=== PATIENT | female | born 1995 | race Two or more races ===

== ENCOUNTER 2021-01-24 12:59 | Emergency (ER) | payer MEDICAID, OTHER ==
[~2021-01-24] VITALS: Ht 157.5 cm; Wt 81.2 kg
[2021-01-24 13:43] VITALS: BP 114/79
== END 2021-01-24 15:20 | disposition home or self-care (01) ==
LOC: ER 12:59
DX: R10.31 Right lower quadrant pain (principal); R10.32 Left lower quadrant pain; R59.0 Localized enlarged lymph nodes; Z88.8 Allergy status to other drugs, medicaments and biological substances
CPT/HCPCS: 76856

== ENCOUNTER 2021-02-25 14:50 | Emergency (ER) | payer MEDICAID ==
[~2021-02-25] VITALS: Ht 157.5 cm; Wt 78.9 kg
[2021-02-25 20:29] LABS: Basophils # (auto) 0 10 ^3/uL (0-0.2); Basophils % (auto) 0.2 % (0.0-2.0); Eosinophils # (auto) 0.1 10 ^3/uL (0-0.8); Eosinophils % (auto) 2.6 % (0.0-7.0); Hematocrit 33.5 % (36.0-46.0); Hemoglobin 10.7 g/dL (12.2-16.2); Lymphocytes % (auto) 18.3 % (10.0-50.0); Mean Corpuscular Hemoglobin 26.5 pg (28.0-32.0); Mean Corpuscular Hgb Conc. 31.8 g/dL (32.0-36.0); Mean Corpuscular Volume 83.3 fL (80.0-100.0); Monocytes # (auto) 0.2 10 ^3/uL (0-1.3); Monocytes % (auto) 3.2 % (0.0-12.0); Neutrophils # (auto) 4.1 10 ^3/uL (1.6-8.6); Neutrophils % (auto) 75.7 % (37.0-80.0); Red Blood Cells 4.02 10^6/uL (4.0-5.20); Red Cell Distribution Width 18.6 % (11.8-14.3); White Blood Cell 5.4 10^3/uL (4.4-10.8)
[2021-02-25 20:37] LABS: Urine Bacteria FEW /hpf (None Seen); Urine Blood Negative /uL (Negative); Urine Mucus FEW (None Seen); Urine Specific Gravity 1.026 (1.001-1.035); Urine WBC 1 /hpf (0 - 5)
[2021-02-25 20:45] LABS: Albumin 2.9 g/dL (3.4-5.0); Calcium 8.8 mg/dL (8.5-10.1); Potassium 3.9 mmol/L (3.5-5.1)
[2021-02-25 20:53] LABS: BUN/Creatinine Ratio 16.2; Bilirubin, Total 0.2 mg/dL (0.2-1.0); CRP High Sensitivity 4.24 mg/dL (< 0.3); Total Protein 8.6 g/dL (6.4-8.2)
[2021-02-25 22:41] VITALS: BP 121/71
== END 2021-02-26 03:06 | disposition home or self-care (01) ==
LOC: ER 14:50
DX: O99.711 Diseases of the skin and subcutaneous tissue complicating pregnancy, first trimester (principal); R21 Rash and other nonspecific skin eruption; C85.95 Non-Hodgkin lymphoma, unspecified, lymph nodes of inguinal region and lower limb; Z3A.00 Weeks of gestation of pregnancy not specified; Z98.890 Other specified postprocedural states; Z88.6 Allergy status to analgesic agent
CPT/HCPCS: 36415; 80053; 81001; 81025; 83605; 84112; 84702; 85025; 85652; 86141; 87040; 87086

== ENCOUNTER 2024-10-17 15:03 | Emergency (ER) | payer MEDICAID ==
[~2024-10-17] VITALS: Ht 157.5 cm; Wt 90.2 kg
[2024-10-17 15:07] VITALS: BP 100/74; RESP 20; TEMP 98.1; O2SAT 99
--- NOTE | 2024-10-17 15:40 | ED.PDOC ---
GI ASSESSMENT HPI Comments 29 y/o F, with no prior medical history presents to the ED for CC of abdominal pain. Patient states, she has been experiencing epigastric abdominal pain that radiates to her back with associated right sided chest discomfort onset, x2days. Patient reports, that she was seen at [facility] and was told symptoms were d/t gastritis; patient was relayed home with medications. Patient comments, that medications have not helped alleviate symptoms. Patient denies nausea, vomiting, headache, dizziness, or diarrhea. No other symptoms or modifying factors present at this time. Chief Complaint: Abdominal Pain Time Seen by MD: 15:30 Primary Care Provider: LEONARDO Reviewed Notes: Nurses Notes, Medications, Allergies Allergies: Coded Allergies: Acetaminophen (Verified Allergy, Unknown, 04/04/23) Ibuprofen (Verified Allergy, Unknown, 01/24/21) Information Source: Patient Mode of Arrival: Ambulatory Timing: Days Duration: Since onset Prehospital treatment: None Quality: None Vomitus: None Stool: Normal Severity: Moderate Recent: None Recent Hx of: None Pain Location: Epigastric Modifying Factors: Nothing Associated sign and symptoms: Abdominal Pain Past Medical History PAST MEDICAL HISTORY: Denies Surgical History: [employer] History: Denies all [employer] Hx Family History Family History: Reviewed,noncontributory to illness Social History Smoker: Non-Smoker Alcohol: Denies ETOH Use Drugs: Denies Drug Use Lives In: Home Constitutional: denies: chills, diaphoresis, fatigue, fever, malaise, sweats, weakness, others EENTM: denies: blurred vision, double vision, ear bleeding, ear discharge, ear drainage, ear pain, ear ringing, eye pain, eye redness, hearing loss, mouth pain, mouth swelling, nasal discharge, nose bleeding, nose congestion, nose pain, photophobia, tearing, throat pain, throat swelling, voice changes, others Respiratory: reports: cough; denies: hemoptysis, orthopnea, SOB at rest, shortness of breath, SOB with excertion, stridor, wheezing, others Cardiovascular: reports: chest pain; denies: dizzy spells, diaphoresis, Dyspnea on exertion, edema, irregular heart beat, left arm pain, lightheadedness, palpitations, PND, syncope, others Gastrointestinal: reports: abdominal pain; denies: abdomen distended, blood streaked bowels, constipated, diarrhea, dysphagia, difficulty swallowing, hematemesis, melena, nausea, poor appetite, poor fluid intake, rectal bleeding, rectal pain, vomiting, others Genitourinary: denies: abnormal vagina bleeding, burning, dyspareunia, dysuria, flank pain, frequency, hematuria, incontinence, pain, , vagina discharge, urgency, others Neurological: denies: dizziness, fainting, headache, left sided numbness, left sided weakness, numbness, paresthesia, pre-existing deficit, right sided numbness, right sided weakness, seizure, speech problems, tingling, tremors, weakness, others Musculoskeletal: denies: back pain, gout, joint pain, joint swelling, muscle pain, muscle stiffness, neck pain, others Integumetry: denies: bruises, change in color, change in hair/nails, dryness, laceration, lesions, lumps, rash, wounds, others Allergic/Immunocompromised: denies: Difficulty Healing, Frequent Infections, Hives, Itching, others Hematologic/Lymphatic: denies: anemia, blood clots, easy bleeding, easy bruising, swollen glands, others Endocrine: denies: excessive hunger, excessive sweating, excessive thirst, excessive urination, flushing, intolerance to cold, intolerance to heat, unexplained weight gain, unexplained weight loss, others Psychiatric: denies: anxiety, bipolar disorder, depression, hopeless, panic disorder, schizophrenia, sleepless, suicidal, others All Other Systems: Reviewed and Negative Physical Exam General Appearance: Mild Distress HEENT: Normal ENT Inspection, Pharynx Normal, TMs Normal Neck: Full Range of Motion, Non-Tender, Normal, Normal Inspection Respiratory: Chest Non-Tender, Lungs Clear, No Accessory Muscle Use, No Respiratory Distress, Normal Breath Sounds Cardiovascular: No Edema, No JVD, No Murmur, No Gallop, Normal Peripheral Pulses, Regular Rate/Rhythm Breast Exam: Deferred Gastrointestinal: Epigastric, No Organomegaly, No Pulsatile Mass, Normal Bowel Sounds, Soft, Tenderness Genitalia: Deferred Pelvic: Deferred Rectal: Deferred Extremities: No calf tenderness, Normal capillary refill, Normal inspection, No rmal range of motion, Non-tender, No pedal edema Musculoskeletal : Apperance: Normal Neurologic: Alert, forepart rasper II-XII nml as Tested, No Motor Deficits, Normal Affect, Normal Mood, No Sensory Deficits Cerebellar Function: Normal Reflexes: Normal Skin: Dry, Normal Color, Warm Lymphatic: No Adenopathy EKG EKG : Pulse Rate (adult): 75 Severy: Normal Cardiac Rhythm: NSR Block: None Hypertrophy: None ST: Normal Was a procedure done? Was a procedure done?: No GI differential Dx Differential Diagnosis: Gastritis/PUD, Gastroenteritis, Electrolyte Imbalance, Food Poisoning, Bacterial, Viral X-Ray, Labs, Meds, VS Vital Signs Date Time Temp Pulse Resp B/P (MAP) Pulse Ox O2 Delivery O2 Flow Rate FiO2 10/17/24 15:53 75 10/17/24 15:32 75 10/17/24 15:07 98.1 74 20 100/74 (83) 99 98.1 Lab Test 10/17/24 16:11 Range/Units White Blood Count 5.3 4.4-10.8 10^3/uL Red Blood Count 4.28 4.0-5.20 10^6/uL Hemoglobin 13.1 12.2-16.2 g/dL Hematocrit 39.7 36.0-46.0 % Mean Corpuscular Volume 92.6 80.0-100.0 fL Mean Corpuscular Hemoglobin 30.6 28.0-32.0 pg Mean Corpuscular Hemoglobin Concent 33.0 32.0-36.0 g/dL Red Cell Distribution Width 13.1 11.8-14.3 % Platelet Count 223 140-450 10^3/uL Mean Platelet Volume 8.8 6.9-10.8 fL Neutrophils (%) (Auto) 55.0 37.0-80.0 % Lymphocytes (%) (Auto) 33.4 10.0-50.0 % Monocytes (%) (Auto) 9.1 0.0-12.0 % Eosinophils (%) (Auto) 2.2 0.0-7.0 % Basophils (%) (Auto) 0.3 0.0-2.0 % Neutrophils # (Auto) 2.9 1.6-8.6 10 ^3/uL Lymphocytes # (Auto) 1.8 0.4-5.4 10 ^3/uL Monocytes # (Auto) 0.5 0-1.3 10 ^3/uL Eosinophils # (Auto) 0.1 0-0.8 10 ^3/uL Basophils # (Auto) 0 0-0.2 10 ^3/uL Nucleated Red Blood Cells 0.1 % Sodium Level 141 136-145 mmol/L Potassium Level 4.3 3.5-5.1 mmol/L Chloride Level 108 H 98-107 mmol/L Carbon Dioxide Level 26 20-31 mmol/L Anion Gap 7 5-15 Blood Urea Nitrogen 7 L 9-23 mg/dL Creatinine 0.98 0.550-1.02 mg/dL Glomerular Filtration Rate Calc 80 >90 mL/min BUN/Creatinine Ratio 7.1 L 10.0-20.0 Serum Glucose 90 74-106 mg/dL Calcium Level 8.8 8.7-10.4 mg/dL Total Bilirubin 0.3 0.2-1.0 mg/dL Aspartate Amino Transferase (AST) 18 13-40 U/L Alanine Aminotransferase (ALT) 43 H 7-40 U/L Alkaline Phosphatase 68 46-116 U/L Total Protein 6.7 5.7-8.2 g/dL Albumin 4.1 3.2-4.8 g/dL Lipase 56 H 12-53 U/L GALLBLADDER US: IMPRESSION: 1. Unremarkable right upper quadrant ultrasound. CBC and chemistry panel are within normal limits. At this time, the lipase is within normal limits The patient is being discharged with a diagnosis of gastritis The patient was given Protonix and Jay here in the emergency department's The patient is being given a prescription of Protonix and Zofran Images Reviewed?: Images reviewed and evaluated by me Time of 1ST Reevaluation: 18:25 Reevaluation 1ST: Improved Patient Education/Counseling: Diagnosis, Treatment, Prognosis, Need For Follow Up Family Education/Counseling: No Family Present Departure 1 Departure Time of Disposition: 18:25 Impression: Primary Impression: Acute gastritis Qualified Codes: K29.00 - Acute gastritis without bleeding Disposition: 01 HOME / SELF CARE / HOMELESS Condition: Fair Discharged With: Self Critical Care Note Critical Care Time?: No Stability Stability form required: No Heart Score Heart Score: Heart Score Response (Comments) Value History N/A 0 EKG N/A 0 Age N/A 0 Risk Factors N/A 0 Troponin N/A 0 Total 0 I personally scribed for HERBERT TORRES MD ([email or web address]) on 10/17/24 at 15:39. Electronically submitted by Renée Macario ([email or web address]). I personally scribed for HERBERT TORRES MD ([email or web address]) on 10/17/24 at 15:53. Electronically submitted by Renée Macario ([email or web address]). I personally scribed for HERBERT TORRES MD ([email or web address]) on 10/17/24 at 15:53. Electronically submitted by Renée Macario ([email or web address]). I personally scribed for HERBERT TORRES MD ([email or web address]) on 10/17/24 at 16:36. Electronically submitted by Renée Macario ([email or web address]). HERBERT TORRES MD October 17, 2024 15:39
--- NOTE | 2024-10-17 15:50 | ECG ---
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
[2024-10-17 15:53] VITALS: PULSE 75
--- NOTE | 2024-10-17 16:33 | DVH ---
EXAM: US GALLBLADDER HISTORY: pain COMPARISON: None TECHNIQUE: Right upper quadrant ultrasound was performed. FINDINGS: No gallstones, gallbladder wall thickening, or pericholecystic free fluid. The gallbladder is partly contracted. The patient was not tender to transducer pressure over the gallbladder. No intr ahepatic biliary ductal dilatation or liver mass. There is hepatopetal portal venous color Doppler fl ow. The common duct measures 0.47 cm in diameter. The partially visualized pancreas is unremarkable. The intrahepatic portion of the IVC is patent. No upper abdominal aortic ectasia. The right kidney me asures 9.02 cm in length and is normal in appearance. IMPRESSION: 1. Unremarkable right upper quadrant ultrasound.
[2024-10-17 16:34] LABS: Basophils # (auto) 0 10 ^3/uL (0-0.2); Basophils % (auto) 0.3 % (0.0-2.0); Eosinophils # (auto) 0.1 10 ^3/uL (0-0.8); Eosinophils % (auto) 2.2 % (0.0-7.0); Hematocrit 39.7 % (36.0-46.0); Hemoglobin 13.1 g/dL (12.2-16.2); Lymphocytes # (auto) 1.8 10 ^3/uL (0.4-5.4); Lymphocytes % (auto) 33.4 % (10.0-50.0); Mean Corpuscular Hemoglobin 30.6 pg (28.0-32.0); Mean Corpuscular Volume 92.6 fL (80.0-100.0); Monocytes # (auto) 0.5 10 ^3/uL (0-1.3); Monocytes % (auto) 9.1 % (0.0-12.0); Neutrophils # (auto) 2.9 10 ^3/uL (1.6-8.6); Nucleated Red Blood Cells % 0.1 %; Platelet Count (auto) 223 10^3/uL (140-450); Red Blood Cells 4.28 10^6/uL (4.0-5.20); Red Cell Distribution Width 13.1 % (11.8-14.3); White Blood Cell 5.3 10^3/uL (4.4-10.8)
[2024-10-17 16:47] LABS: Albumin 4.1 g/dL (3.2-4.8); Alkaline Phosphatase 68 U/L (46-116); Anion Gap 7 (5-15); Aspartate Aminotransferase 18 U/L (13-40); BUN/Creatinine Ratio 7.1 (10.0-20.0); Bilirubin, Total 0.3 mg/dL (0.2-1.0); Calcium 8.8 mg/dL (8.7-10.4); Carbon Dioxide 26 mmol/L (20-31); Glucose 90 mg/dL (74-106); Potassium 4.3 mmol/L (3.5-5.1); Sodium 141 mmol/L (136-145); Total Protein 6.7 g/dL (5.7-8.2)
[2024-10-17 16:50] LABS: Alanine Aminotransferase 43 U/L (7-40); Blood Urea Nitrogen 7 mg/dL (9-23); Chloride 108 mmol/L (98-107); Lipase 56 U/L (12-53)
[2024-10-17] MEDS ORDERED: PANT40TA2 PO (18:26)
[2024-10-17] MEDS ORDERED: ZOFR4T PO (18:26)
[2024-10-17] MEDS ORDERED: PANTOPRAZOLE 40 MG TAB PO ONE (18:30)
[2024-10-17] MEDS ORDERED: HYDROcodone-ACET 5/325MG TAB PO ONE (18:30)
[2024-10-17 19:33] LABS: Urine Bacteria None Seen /hpf (None Seen)
[2024-10-17 20:00] LABS: Urine Blood Negative /uL (Negative); Urine Clarity Clear (Clear); Urine Color Light-Yellow (Yellow); Urine Mucus FEW (None Seen); Urine Protein, UAD Negative (Negative); Urine Squamous Epithelial Cell FEW /hpf (<5); Urine Urobilinogen Normal (Negative); Urine WBC < 1 /HPF (0-5)
== END 2024-10-18 01:00 | disposition home or self-care (01) ==
LOC: ER 15:06
DX: K29.00 Acute gastritis without bleeding (principal); Z88.6 Allergy status to analgesic agent
CPT/HCPCS: 36415; 76705; 80053; 81001; 83690; 85025; 93005